=== PATIENT | male | born 1970 | race Caucasian/White ===

== ENCOUNTER 2017-12-12 09:07 | Inpatient (IN) | payer BC, MEDICAID, SELFPAY ==
[~2017-12-12] VITALS: Ht 185.4 cm; Wt 81.5 kg
[2017-12-12] VITALS (10 sets, daily range): BP systolic 113–127; BP diastolic 66–80
[~2017-12-12 09:07] MED LIST: BACDS PO
[2017-12-12] MEDS ORDERED: normal saline 1000ml 1,000 ML IV ONE (12:31)
[2017-12-12] MEDS ORDERED: normal saline 1000ML IV soln IVB ONE ×2 (12:35→12:50)
[2017-12-12 12:57] LABS: BASOPHILS % (AUTO) 0.1 % (0-1); EOSINOPHILS # (AUTO) 0.2 X10'3 (0-0.9); EOSINOPHILS % (AUTO) 1.3 % (0-6); HEMATOCRIT 41.4 % (42.0-52.0); HEMOGLOBIN 13.9 g/dl (14.0-17.9); LYMPHOCYTES # (AUTO) 0.6 X10'3 (1.1-4.8); LYMPHOCYTES % (AUTO) 3.3 % (21-51); MEAN CORPUSCULAR HGB CONC 33.5 % (33.0-36.5); MEAN CORPUSCULAR VOLUME 98.7 FL (78-98); MEAN PLATELET VOLUME 7.1 FL (7.4-10.4); MONOCYTES # (AUTO) 1.2 X10'3 (0-0.9); MONOCYTES % (AUTO) 6.7 % (2-12); NEUTROPHILS # (AUTO) 15.8 X10'3 (1.8-7.7); NEUTROPHILS % (AUTO) 88.6 % (42-75); PLATELET COUNT 380 X10'3 (140-440); RED BLOOD COUNT 4.19 X10'6 (4.70-6.10); RED CELL DISTRIBUTION WIDTH 14.3 % (11.5-14.5); WHITE BLOOD COUNT 17.9 X10'3 (4.5-11.0)
[2017-12-12 13:08] LABS: PARTIAL THROMBOPLASTIN TIME 28 SECONDS (22-32); PROTHROMBIN TIME 10.8 SECONDS (9.0-12.0)
[2017-12-12 13:23] LABS: ALANINE AMINOTRANSFERASE 20 U/L (12-78); ALBUMIN 3.5 G/DL (3.4-5.0); ALBUMIN/GLOBULIN RATIO 0.9 (1.1-1.5); ALKALINE PHOSPHATASE 89 IU/L (46-116); ANION GAP 8 (8-16); ASPARTATE AMINO TRANSFERASE 6 U/L (10-37); BILIRUBIN,TOTAL 0.9 MG/DL (0.1-1.0); BLOOD UREA NITROGEN 13 MG/DL (7-18); CALCIUM 8.8 MG/DL (8.5-10.1); CHLORIDE 103 MMOL/L (99-107); GLUCOSE 98 MG/DL (70-104); LIPASE < 50 U/L (73-393); POTASSIUM 3.7 MMOL/L (3.5-5.1); SODIUM 139 MMOL/L (135-145); TOTAL CARBON DIOXIDE 28.3 MMOL/L (24-32); TOTAL PROTEIN 7.2 G/DL (6.4-8.2); eGFR 81 ML/MIN
[2017-12-12] MEDS ORDERED: diazepam 5mg tablet PO ONE (13:50)
[2017-12-12] MEDS ORDERED: levoFLOXACIN-Levaquin 500mg/D5 100 ML IV ONE (14:10)
[2017-12-12] MEDS ORDERED: metroNIDAZOLE-Flagyl 500mg/NS 100 ML IV ONE (14:10)
[2017-12-12] MEDS ORDERED: iohexol 300mg/ml 100ml inj. ONE (14:14)
[2017-12-12] MEDS ORDERED: acetaminophen 325mg tablet PO PRN ×2 (15:20)
[2017-12-12] MEDS ORDERED: mag hydrox/Alum hydrox/simeth 30ml oral suspension PO PRN (15:20)
[2017-12-12] MEDS ORDERED: magnesium 2GM in 50ml NS 50 ML IV PRN (15:20)
[2017-12-12] MEDS ORDERED: magnesium 4gm in 100ml NS 100 ML IV PRN (15:20)
[2017-12-12] MEDS ORDERED: HYDROcodone/acetaminophen 10/325mg tab PO PRN ×2 (15:20→22:05)
[2017-12-12] MEDS ORDERED: potassium Cl 40MEQ/NS 500ml 500 ML IV PRN ×2 (15:20)
[2017-12-12] MEDS ORDERED: magnesium hydroxide 30ml (MOM) UD suspension PO PRN (15:20)
[2017-12-12] MEDS ORDERED: ondansetron/PF 4mg/2ml inj IV PRN ×3 (15:20→22:05)
[2017-12-12] MEDS ORDERED: potassium Cl 20 mEq SR tablet PO PRN ×2 (15:20)
[2017-12-12] MEDS ORDERED: HYDROcodone/acetaminophen 5mg/325mg tablet PO PRN (15:20)
[2017-12-12] MEDS ORDERED: HYDROmorphone 1 mg/ml syringe IV PRN ×2 (15:20)
[2017-12-12] MEDS ORDERED: magnesium Cl slow-release 64mg tablet PO PRN (15:20)
[2017-12-12] MEDS: normal saline 1000ml 1,000 ML IV SCH (15:37)
[2017-12-12] MEDS ORDERED: diazepam 5mg tablet PO PRN (16:20)
[2017-12-12] MEDS ORDERED: HYDROmorphone/NS 1 mg/ml CADD 50 ML IV SCH (16:20)
[2017-12-12] MEDS ORDERED: CADD PCA waste documentation MC SCH (16:25)
[2017-12-12] MEDS: metroNIDAZOLE-Flagyl 500mg/NS 100 ML IV SCH ×2 (16:44→23:59)
[2017-12-12] MEDS ORDERED: PRED5TAB49 PO (18:38)
[2017-12-12] MEDS ORDERED: SULF500T59 PO (18:38)
[2017-12-12] MEDS: ketorolac trometh. 30mg/ml inj. IV SCH ×2 (19:20→20:00)
[2017-12-12] MEDS: HYDROmorphone/NS 1 mg/ml CADD 50 ML IV SCH ×2 (19:23→23:00)
[2017-12-12] MEDS: sulfaSALAZINE 500 MG tablet PO SCH (20:00)
[2017-12-12] MEDS ORDERED: ringers solution, lacted 1,000 ML IV SCH (20:42)
[2017-12-12] MEDS ORDERED: fentaNYL/PF 50MCG/1 ML 2ML syringe IV PRN ×2 (20:45)
[2017-12-12] MEDS ORDERED: labetalol 5mg/ml 20ml inj. IV PRN (20:45)
[2017-12-12] MEDS ORDERED: hydrALAZINE 20mg/ml inj. IV PRN (20:45)
[2017-12-12 20:46] LABS: CLARITY,URINE CLEAR (Clear); COLOR,URINE YELLOW (Yellow); GLUCOSE, URINE NEGATIVE (Neg); KETONES,URINE 40 mg/dl (Neg); LEUKOCYTE ESTERASE ,URINE NEGATIVE (Neg); NITRITES, URINE NEGATIVE (Neg); OCCULT BLOOD,URINE TRACE-INTACT (Neg); PROTEIN,URINE NEGATIVE (Neg); UROBILINOGEN,URINE 0.2 E.U/dL (0.2-1.0)
[2017-12-12 20:48] LABS: UA COLLECTION TYPE FOLEY CATH
[2017-12-12 20:51] LABS: BACTERIA,URINE NONE SEEN /HPF (Neg); RBC,URINE 0-2 /HPF (0-2); SQUAMOUS EPITHELIAL CELL,UR FEW /LPF (FEW); WBC,URINE NONE SEEN /HPF (0-4)
[2017-12-12] MEDS: piperacillin/tazo 4.5gm/100ml 100 ML IV SCH (21:00)
[2017-12-12] MEDS ORDERED: temazepam 15mg capsule PO PRN (21:00)
[2017-12-12] MEDS ORDERED: fentaNYL/PF 50MCG/1 ML 2ML syringe ONE (21:18)
[2017-12-12] MEDS ORDERED: midazolam 2 mg/2 ml injection ONE (21:18)
[2017-12-12] MEDS ORDERED: LIDOcaine 2% (20mg/ml) 5ml vial ONE (21:19)
[2017-12-12] MEDS ORDERED: dexamethasone sod phosphate 4mg/ml inj. ONE (21:19)
[2017-12-12] MEDS ORDERED: propofol inj 20 ML IV ONE (21:19)
[2017-12-12] MEDS ORDERED: ondansetron/PF 4mg/2ml inj ONE (21:19)
[2017-12-12] MEDS ORDERED: sevoflurane 250ml liquid IH ONE (21:20)
[2017-12-12] MEDS ORDERED: piperacillin/tazo 4.5gm/100ml 100 ML IV ONE ×2 (21:23→21:24)
[2017-12-12] MEDS ORDERED: HYDROmorphone inj. 0.5 MG/0.5 ML DISP.SYRIN IV PRN (22:05)
[2017-12-13] VITALS (7 sets, daily range): BP systolic 103–126; BP diastolic 62–78
[2017-12-13] MEDS: normal saline 1000ml 1,000 ML IV SCH ×2 (01:16→04:57)
[2017-12-13] MEDS: ketorolac trometh. 30mg/ml inj. IV SCH ×2 (02:08→09:18)
[2017-12-13] MEDS: HYDROmorphone/NS 1 mg/ml CADD 50 ML IV SCH ×3 (03:45→09:00)
[2017-12-13] MEDS: piperacillin/tazo 4.5gm/100ml 100 ML IV SCH (05:04)
[2017-12-13 05:54] LABS: BASOPHILS % (AUTO) 0 % (0-1); EOSINOPHILS # (AUTO) 0.2 X10'3 (0-0.9); EOSINOPHILS % (AUTO) 1.2 % (0-6); HEMATOCRIT 37.1 % (42.0-52.0); HEMOGLOBIN 12.5 g/dl (14.0-17.9); LYMPHOCYTES # (AUTO) 0.4 X10'3 (1.1-4.8); LYMPHOCYTES % (AUTO) 2.2 % (21-51); MEAN CORPUSCULAR HEMOGLOBIN 32.9 PG (27.0-31.0); MEAN CORPUSCULAR HGB CONC 33.6 % (33.0-36.5); MONOCYTES # (AUTO) 0.4 X10'3 (0-0.9); MONOCYTES % (AUTO) 2.6 % (2-12); NEUTROPHILS # (AUTO) 15.7 X10'3 (1.8-7.7); PLATELET COUNT 358 X10'3 (140-440); RED BLOOD COUNT 3.79 X10'6 (4.70-6.10); RED CELL DISTRIBUTION WIDTH 13.9 % (11.5-14.5); WHITE BLOOD COUNT 16.7 X10'3 (4.5-11.0)
[2017-12-13 06:22] LABS: ALANINE AMINOTRANSFERASE 25 U/L (12-78); ALBUMIN 2.8 G/DL (3.4-5.0); ALBUMIN/GLOBULIN RATIO 0.8 (1.1-1.5); ALKALINE PHOSPHATASE 82 IU/L (46-116); ANION GAP 8 (8-16); ASPARTATE AMINO TRANSFERASE 17 U/L (10-37); BILIRUBIN,TOTAL 0.9 MG/DL (0.1-1.0); BLOOD UREA NITROGEN 13 MG/DL (7-18); BUN/CREATININE RATIO 14.4 (5.4-32.0); CALCIUM 8.7 MG/DL (8.5-10.1); CHLORIDE 104 MMOL/L (99-107); GLUCOSE 128 MG/DL (70-104); MAGNESIUM 1.8 MG/DL (1.5-2.4); POTASSIUM 3.9 MMOL/L (3.5-5.1); SODIUM 138 MMOL/L (135-145); TOTAL CARBON DIOXIDE 26.2 MMOL/L (24-32); TOTAL PROTEIN 6.5 G/DL (6.4-8.2); eGFR > 90 ML/MIN
[2017-12-13] MEDS ORDERED: levoFLOXACIN-Levaquin 500mg/D5 100 ML IV SCH (08:00)
[2017-12-13] MEDS ORDERED: K and/or MAG REPLACEMENT MC SCH (08:00)
[2017-12-13] MEDS ORDERED: predniSONE 5mg tablet PO SCH (08:00)
[2017-12-13] MEDS: metroNIDAZOLE-Flagyl 500mg/NS 100 ML IV SCH (09:15)
[2017-12-13] MEDS: sulfaSALAZINE 500 MG tablet PO SCH (09:18)
[2017-12-13] MEDS ORDERED: HYDR-565 PO (11:30)
[2017-12-13] MEDS ORDERED: METR500T PO (11:30)
[2017-12-13] MEDS ORDERED: LEVO500T2 PO (15:47)
[2017-12-13] MEDS ORDERED: HYDROmorphone/NS 1 mg/ml CADD 50 ML IV SCH (16:20)
== END 2017-12-13 16:15 | disposition home or self-care (01) | DRG 345 ==
LOC: ER 09:08 → ED HOLD 15:16 → MED 3N 17:34
PROVIDERS: ADMIT Family Medicine; ATTEND Internal Medicine
PROC: BW211ZZ Computerized Tomography (CT Scan) of Abdomen and Pelvis using Low Osmolar Contrast (ICD-10-PCS; 2017-12-12)
PROC: 0D9P0ZZ Drainage of Rectum, Open Approach (ICD-10-PCS; principal; 2017-12-12 21:20)
DX: K61.1 Rectal abscess (principal); K51.90 Ulcerative colitis, unspecified, without complications; K56.41 Fecal impaction; G43.909 Migraine, unspecified, not intractable, without status migrainosus; D72.829 Elevated white blood cell count, unspecified; Z90.49 Acquired absence of other specified parts of digestive tract; Z79.52 Long term (current) use of systemic steroids; Z79.899 Other long term (current) drug therapy
CPT/HCPCS: 96361; 96374; 96376; 99285; Z7506; 36415; 74018; 74177; 80053; 81001; 83605; 83690; 83735; 85025; 85610; 85730; 87040; 87070; 87075; 87077; 87186; A4315; A6266; A6449; A7000; J1100; J1170; J1885; J1956; J2001; J2250; J2270; J2405; J2543; J2704; J3010; J3490; J7030; J7120; J7512; Q9967